=== PATIENT | female | born 1960 | race Hispanic/Latino ===

== ENCOUNTER → 2021-02-27 | Day surgery (SDC) | payer BC ==
[~2021-02-27] MED LIST: ATORVASTATIN CA20 MG PO; CARVEDILOL25 MG PO; CHANTIX1 MG PO; EFFEXOR XR 3737.5 MG PO; FERROUS SULFAT325 MG PO; HYDROXYZINE HCL25 MG PO; LIDOCAINE HCL 2% LOCAL INJ 5 ML SDV VIAL INJ ONE; LISINOPRIL10 MG PO; MIDAZOLAM HCL 2 MG/2 ML VIAL ONE; PROPOFOL IV EMULSION 10 MG/ML 20 ML VIAL ONE; REXULTI3 MG PO; TRAZODONE HCL300 MG PO
[2021-02-27 10:40] VITALS: BP 113/61
== END | disposition home or self-care (01) ==
LOC: OR 07:33
PROVIDERS: ATTEND Internal Medicine Gastroenterology
DX: D50.9 Iron deficiency anemia, unspecified (principal); K29.50 Unspecified chronic gastritis without bleeding; K21.00 Gastro-esophageal reflux disease with esophagitis, without bleeding; K64.8 Other hemorrhoids; Z98.84 Bariatric surgery status; Z71.3 Dietary counseling and surveillance; K76.0 Fatty (change of) liver, not elsewhere classified; E66.9 Obesity, unspecified; I10 Essential (primary) hypertension; R00.1 Bradycardia, unspecified; R05 Cough; F17.210 Nicotine dependence, cigarettes, uncomplicated; Z01.810 Encounter for preprocedural cardiovascular examination; Z68.38 Body mass index [BMI] 38.0-38.9, adult; Z95.0 Presence of cardiac pacemaker; Z86.73 Personal history of transient ischemic attack (TIA), and cerebral infarction without residual deficits
CPT/HCPCS: 43239; 45378; 93005; J2001; J2704; J2250